=== PATIENT | female | born 1995 | race Caucasian/White ===

== ENCOUNTER 2017-06-17 20:32 | Emergency (ER) | payer BC ==
[~2017-06-17] VITALS: Ht 152.4 cm; Wt 48.9 kg
[~2017-06-17 20:32] MED LIST: ACET-1256 PO; CETI10TA84 PO; ONDA4TAB46 PO
[2017-06-17 20:35] VITALS: TEMP 36.6; Ht 152.4 cm; Wt 48.9 kg
[2017-06-17] MEDS ORDERED: SODIUM CHLORIDE 0.9% 1000ML 1,000 ML IV STA ×2 (21:22→23:32)
[2017-06-17] MEDS ORDERED: METOCLOPRAMIDE HCL INJ 5 MG/ML 2 ML VIAL IV STA (21:22)
--- NOTE | 2017-06-17 21:24 | EMERGENCY ROOM VISIT NOTE ---
History Report prepared by Manas: Warren Davila Under the Supervision of: Dr. Vinicio Murguia M.D. First contact with patient: 20:58 Chief Complaint: VOMITING Stated Complaint: NAUSEA,VOMITTING,DEHYDRATION History of Present Illness The patient is a 21 year old white female with a past medical history of anxiety induced vomiting who presents to the ED with a cc of vomiting beginning 24 hours ago. Positive nausea, diaphoresis, and stressors. Negative loss of consciousness, fevers, chills, trauma, falls, or sore throat. The patient just recently moved in for classes this semester and has a lot of current stress. This has induced her vomiting episodes. This tends to be normal for her, but the vomiting has persisted for over 24 hours, and she cannot keep any food or liquid in her system. She has tried Zofran with no relief. She takes Fluoxetine for her Anxiety. She received an endoscopy for her upper GI track that was negative. She also has her wisdom teeth removed. Her last menstrual period was the end of April, and it was normal. Source of History: patient Onset: 24 hours ago Position: other (GI) Symptom Intensity: 8 episodes Quality: other (Vomiting) Timing: intermittent Associated Symptoms: + diaphoresis, + nausea, No LOC, No fevers, No chills, No neck pain Note: She has current stressors. Review of Systems See HPI for pertinent positives and negatives. A total of ten systems were reviewed and were otherwise negative. Past Medical & Surgical No past medical history Family History Patient reports no known family medical history. Social History Smoking Status: Never Smoker Smokeless Tobacco Use: No Alcohol Use: none Drug Use: none Marital Status: single Housing Status: lives with roommate Occupation Status: [email or web address] student Current/Historical Medications Scheduled Acetaminophen (Tylenol), 500 MG PO PRN Cetirizine (Zyrtec), 10 MG PO DAILY Fluoxetine Hcl (Pmdd) (Fluoxetine), 1 CAP PO DAILY Scheduled PRN Metoclopramide (Reglan), 10 MG PO Q6H PRN for Nausea Ondansetron Hcl (Zofran), 4 MG PO Q8 PRN for Nausea Allergies Coded Allergies: No Known Allergies (Unverified , 06/17/17) Physical Exam Vital Signs Date Time Temp Pulse Resp B/P (MAP) Pulse Ox O2 Delivery O2 Flow Rate FiO2 06/18/17 00:44 96 20 98 06/18/17 00:23 102 20 112/69 98 Room Air 06/17/17 22:26 98 16 108/65 99 Room Air 06/17/17 21:44 81 06/17/17 20:35 36.6 98 16 112/80 99 Room Air Physical Exam GENERAL: Awake, alert, well-appearing, NAD HENT: Normocephalic, atraumatic. EYES: Normal conjunctiva. Sclera non-icteric. NECK: Supple. No nuchal rigidity. FROM. RESPIRATORY: CTAB, no rhonchi, wheezing, crackles CARDIAC: RRR, no MRG ABDOMEN: Soft, NTND, BS+ MSK: No chest wall TTP, no LE edema NEURO: GCS 15, CN 2-12 intact, moves all 4s on command SKIN: No rash or jaundice noted. Medical Decision & Procedures Laboratory Results 06/17/17 21:35 Red Blood Count 4.63, Mean Corpuscular Volume 85.7, Mean Corpuscular Hemoglobin 28.9, Mean Corpuscular Hemoglobin Concent 33.8, Mean Platelet Volume 9.0, Neutrophils (%) (Auto) 72.9, Lymphocytes (%) (Auto) 18.4, Monocytes (%) (Auto) 8.0, Eosinophils (%) (Auto) 0.3, Basophils (%) (Auto) 0.1, Neutrophils # (Auto) 6.82, Lymphocytes # (Auto) 1.72, Monocytes # (Auto) 0.75, Eosinophils # (Auto) 0.03, Basophils # (Auto) 0.01 06/17/17 21:35 Test 06/17/17 21:35 06/17/17 22:20 White Blood Count 9.36 K/uL (4.8-10.8) Red Blood Count 4.63 M/uL (4.2-5.4) Hemoglobin 13.4 g/dL (12.0-16.0) Hematocrit 39.7 % (37-47) Mean Corpuscular Volume 85.7 fL (80-100) Mean Corpuscular Hemoglobin 28.9 pg (25-34) Mean Corpuscular Hemoglobin Concent 33.8 g/dl (32-36) Platelet Count 336 K/uL (130-400) Mean Platelet Volume 9.0 fL (7.4-10.4) Neutrophils (%) (Auto) 72.9 % Lymphocytes (%) (Auto) 18.4 % Monocytes (%) (Auto) 8.0 % Eosinophils (%) (Auto) 0.3 % Basophils (%) (Auto) 0.1 % Neutrophils # (Auto) 6.82 K/uL (1.4-6.5) Lymphocytes # (Auto) 1.72 K/uL (1.2-3.4) Monocytes # (Auto) 0.75 K/uL (0.11-0.59) Eosinophils # (Auto) 0.03 K/uL (0-0.5) Basophils # (Auto) 0.01 K/uL (0-0.2) RDW Standard Deviation 39.8 fL (36.4-46.3) RDW Coefficient of Variation 12.8 % (11.5-14.5) Immature Granulocyte % (Auto) 0.3 % Immature Granulocyte # (Auto) 0.03 K/uL (0.00-0.02) Anion Gap 11.0 mmol/L (3-11) Est Creatinine Clear Calc Drug Dose 82.3 ml/min Estimated GFR () 125.8 Estimated GFR (Non- 108.5 BUN/Creatinine Ratio 13.0 (10-20) Calcium Level 9.3 mg/dl (8.5-10.1) Total Bilirubin 0.7 mg/dl (0.2-1) Direct Bilirubin 0.2 mg/dl (0-0.2) Aspartate Amino Transf (AST/SGOT) 14 U/L (15-37) Alanine Aminotransferase (ALT/SGPT) 17 U/L (12-78) Alkaline Phosphatase 54 U/L (45-117) Total Protein 7.7 gm/dl (6.4-8.2) Albumin 4.1 gm/dl (3.4-5.0) Lipase 70 U/L (73-393) Urine Color DK YELLOW Urine Appearance CLEAR (CLEAR) Urine pH 5.5 (4.5-7.5) Urine Specific [place] 1.035 (1.000-1.030) Urine Protein TRACE (NEG) Urine Glucose (UA) NEG (NEG) Urine Ketones 4+ (NEG) Urine Occult Blood TRACE (NEG) Urine Nitrite NEG (NEG) Urine Bilirubin NEG (NEG) Urine Urobilinogen NEG (NEG) Urine Leukocyte Esterase NEG (NEG) Urine WBC (Auto) 1-5 /hpf (0-5) Urine RBC (Auto) 0-4 /hpf (0-4) Urine Hyaline Casts (Auto) 0 /lpf (0-5) Urine Epithelial Cells (Auto) >30 /lpf (0-5) Urine Bacteria (Auto) 1+ (NEG) Urine Pathogenic Casts /lpf (0) Urine Mucus PRESENT (NONE PRSENT) Urine Test NEG (NEG) Laboratory results reviewed by me Medications Administered Medications (Trade) Dose Ordered Sig/Lee Route Start Time Stop Time Status Last Admin Dose Admin Metoclopramide HCl (Reglan Inj) 10 mg NOW STAT IV 06/17/17 21:22 06/17/17 21:25 DC 06/17/17 21:38 10 MG Sodium Chloride 1,000 ml @ 999 mls/hr Q1H1M STAT IV 06/17/17 21:22 06/17/17 22:22 DC 06/17/17 21:38 999 MLS/HR Potassium Chloride (Klor-Con Tab) 40 meq ONE STAT PO 06/17/17 22:18 06/17/17 22:19 DC 06/17/17 22:48 40 MEQ Sodium Chloride 1,000 ml @ 999 mls/hr Q1H1M STAT IV 06/17/17 23:32 06/18/17 00:32 DC 06/17/17 23:39 999 MLS/HR ED Course 2057: The patient was evaluated in room C6. A complete history and physical exam was performed. 2310: The patient's PO challenge was successful. 2330: I reevaluated the patient. Discussed results and discharge instructions: She verbalized understanding and agreement. The patient is ready for discharge. Medical Decision The patient is a 21 year old white female with a past medical history of anxiety induced vomiting who presents to the ED with a cc of vomiting beginning 24 hours ago. Positive nausea, diaphoresis, and stressors. Negative loss of consciousness, fevers, trauma, falls, or sore throat. Triage Nursing notes reviewed. The patient's presentation and history were concerning for appendicitis, diverticulitis, PUD, biliary pathology, UTI, pancreatitis, obstruction, mesenteric ischemia, aortic pathology, infections, inflammatory bowel disease, renal colic, as well as others were entertained. Patient was seen and evaluated the bedside. Patient did state that every time she does get stressed out she does experience vomiting. Patient has not been able tolerate by mouth. Patient denies any pain. The patient had blood work. Patient was given IV fluids as well as Reglan. Patient's tachycardia improved. Patient did have mild hypokalemia which was repleted. Patient's UA was negative but did have ketones likely consistent with starvation ketosis. Patient was able to tolerate by mouth and was able to drink water. Patient's UPT was negative. Patient was counseled on augmenting her diet. Patient was also told to avoid caffeinated or alcoholic beverages. Patient was given strict follow-up, discharge, and return precautions. She agreed with plan of care and patient was safely discharged home. Medication Reconcilliation Current Medication List: was personally reviewed by me Blood Pressure Screening Patient's blood pressure: Normal blood pressure Blood pressure disposition: Did not require urgent referral Impression Primary Impression: Dehydration Additional Impressions: Nausea & vomiting Hypokalemia Scribe Attestation The scribe's documentation has been prepared under my direction and personally reviewed by me in its entirety. I confirm that the note above accurately reflects all work, treatment, procedures, and medical decision making performed by me. Departure Information Dispostion Home / Self-Care Prescriptions Metoclopramide (Reglan) 10 Mg Tab 10 MG PO Q6H Y for Nausea, #6 TAB Prov: Vinicio Murguia M.D. 06/17/17 Referrals No Doctor, Assigned (PCP) Forms HOME CARE DOCUMENTATION FORM, IMPORTANT VISIT INFORMATION Patient Instructions Dehydration, ED Nausea Vomiting, [facility] Additional Instructions Please return to the emergency department if you have worsening or recurrent symptoms not amenable to at-home treatment. Please call for a follow-up appointment with her primary care physician. Please take your medications as prescribed. If you have other concerns and/or complaints please feel free to also call your primary care physician's office or return the ED for further evaluation, management, and treatment. If he do feel nauseated please only take one of her anti-emetics at one time. If this is not working may try the other medication. School Instructions Return To School: 1 day Problem Qualifiers Additional Impressions: Nausea & vomiting Vomiting type: unspecified Vomiting Intractability: non-intractable Qualified Codes: R11.2 - Nausea with vomiting, unspecified
[2017-06-17] MEDS ORDERED: FLUO20CA20 PO (21:27)
[2017-06-17 21:46] LABS: BASO % 0.1 %; BASO ABS # 0.01 K/uL (0-0.2); COMPLETE YES; EOS % 0.3 %; HEMATOCRIT 39.7 % (37-47); IG% 0.3 %; LYMPH % 18.4 %; LYMPH ABS # 1.72 K/uL (1.2-3.4); MEAN CELL VOLUME 85.7 fL (80-100); MEAN CORPUSCULAR HEMOGLOBIN 28.9 pg (25-34); MEAN CORPUSCULAR HGB CONC 33.8 g/dl (32-36); NEUT % 72.9 %; PLATELET COUNT 336 K/uL (130-400); RED BLOOD COUNT 4.63 M/uL (4.2-5.4); WHITE BLOOD COUNT 9.36 K/uL (4.8-10.8)
[2017-06-17 22:11] LABS: CALCIUM 9.3 mg/dl (8.5-10.1); CREATININE 0.79 mg/dl (0.60-1.20); POTASSIUM 3.3 mmol/L (3.5-5.1)
[2017-06-17] MEDS ORDERED: POTASSIUM CHLORIDE 20 MEQ TABCR PO STA (22:18)
[2017-06-17 22:49] LABS: URINE APPEARANCE CLEAR (CLEAR); URINE BILIRUBIN NEG (NEG); URINE COLOR DK YELLOW; URINE EPITHELIAL CELL AUTO >30 /lpf (0-5); URINE NITRITE NEG (NEG); URINE PH 5.5 (4.5-7.5); URINE SPECIFIC GRAVITY 1.035 (1.000-1.030); UROBILINOGEN NEG (NEG); ZZUR CULT IF INDIC CLEAN CATCH YES
[2017-06-17 22:52] LABS: MANUAL MICROSCOPIC REQUIRED? NO; REVIEW REQ? YES
[2017-06-17 23:02] LABS: URINE MUCUS PRESENT (NONE PRSENT)
[2017-06-17] MEDS ORDERED: METO-157 PO (23:23)
[2017-06-18 00:23] VITALS: BP 112/69
[2017-06-18 00:44] VITALS: PULSE 96; O2SAT 98
== END 2017-06-18 00:46 | disposition home or self-care (01) ==
LOC: C.EDB 20:33 → C.EDC 06-18 00:46
DX: E86.0 Dehydration (principal); R11.2 Nausea with vomiting, unspecified; E87.6 Hypokalemia

== ENCOUNTER 2017-06-18 07:18 | Emergency (ER) | payer BC ==
[~2017-06-18] VITALS: Ht 157.5 cm; Wt 50.6 kg
[~2017-06-18 07:18] MED LIST changes: +FLUO20CA20 PO; +METO-157 PO
[2017-06-18 07:27] VITALS: TEMP 36.8; Ht 157.5 cm; Wt 50.6 kg
[2017-06-18] MEDS ORDERED: DiphenhydrAMINE HCL 50 MG/ML VIAL IV STA (07:35)
[2017-06-18] MEDS ORDERED: PROMETHAZINE HCL INJ 6.25 MG in SODIUM CHLORIDE 0.9% 50ML 50 ML IV STA (07:35)
[2017-06-18] MEDS ORDERED: LORAZEPAM 2 MG/ML 1 ML VIAL IV STA (07:35)
[2017-06-18] MEDS ORDERED: SODIUM CHLORIDE 0.9% 1000ML 1,000 ML IV STA (07:35)
--- NOTE | 2017-06-18 07:42 | EMERGENCY ROOM VISIT NOTE ---
History Report prepared by Manas: Lesly Thompson Under the Supervision of: Dr. Cortes Phoenix M.D. First contact with patient: 07:32 Chief Complaint: NAUSEA Stated Complaint: NAUSEA,CAN'T STOP VOMITING,HANDS CRAMPING History of Present Illness The patient is a 21 year old female who presents to the Emergency Room with complaints of persistent nausea that began six hours ago. The patient reports that she has a history of nausea and vomiting with anxiety. She states that she was evaluated in the emergency department early this morning for her persistent nausea and vomiting and states that upon discharge she was feeling well. The patient states that once she returned home she became nauseous. She states that thirty minutes ago she began vomiting, reporting four episodes of emesis. The patient denies any diarrhea, noting that her last bowel movement was yesterday. Per records, the patient was evaluated 6 hours ago and her lab work and urinalysis was normal. testing was negative. Records indicate that the patient was given fluids and Reglan and was discharged with a prescription for Reglan. The patient states that she has not been able to get her Reglan filled and states that she had left over Zofran at home. She denies any relief with the Zofran. The patient states that this has happened in the past. Source of History: patient Onset: six hours ago Position: other (global) Quality: other (nausea) Timing: other (persistent) Associated Symptoms: + vomiting, No diarrhea Review of Systems See HPI for pertinent positives & negatives. A total of 10 systems reviewed and were otherwise negative. Past Medical & Surgical Medical Problems: (1) Pneumonia Surgical Problems: (1) [place] teeth extracted Family History Patient reports no known family medical history. Social History Smoking Status: Never Smoker Alcohol Use: none Drug Use: none Marital Status: single Housing Status: lives with roommate Occupation Status: [employer] student Current/Historical Medications Scheduled Acetaminophen (Tylenol), 500 MG PO PRN Cetirizine (Zyrtec), 10 MG PO DAILY Fluoxetine Hcl (Pmdd) (Fluoxetine), 1 CAP PO DAILY Scheduled PRN Metoclopramide (Reglan), 10 MG PO Q6H PRN for Nausea Ondansetron Hcl (Zofran), 4 MG PO Q8 PRN for Nausea Allergies Coded Allergies: No Known Allergies (Unverified , 8/23/17) Physical Exam Vital Signs Date Time Temp Pulse Resp B/P (MAP) Pulse Ox O2 Delivery O2 Flow Rate FiO2 06/18/17 12:34 86 15 111/75 97 06/18/17 11:15 82 17 120/85 98 Room Air 06/18/17 09:11 88 14 120/86 100 Room Air 06/18/17 08:10 77 20 113/80 99 Room Air 06/18/17 07:27 36.8 112 18 108/79 98 Room Air Physical Exam GENERAL: Patient is anxious, pacing. HEENT: No acute trauma, normocephalic atraumatic, mucous membranes moist, no nasal congestion, no scleral icterus. NECK: No stridor, no adenopathy, no meningismus, trachea is midline. LUNGS: Clear to auscultation bilaterally, no wheeze, no rhonchi, breath sounds equal. HEART: Mildly tachycardic with a regular rhythm, no murmurs. ABDOMEN: Soft, nontender, bowel sounds positive, no hernias, no peritonitis. EXTREMITIES: No cyanosis or edema, full range of motion of all the joints without pain or difficulty, no signs for acute trauma. NEUROLOGIC: Oriented x 3, no acute motor or sensory deficits, no focal weakness. SKIN: No rash, no jaundice, no diaphoresis. Medical Decision & Procedures ER Provider Diagnostic Interpretation: X-ray results as stated below per interpretation by me and the radiologist: ABDOMEN 2VIEW W/PA CHEST RTN HISTORY: 21 years-old Female vomiting COMPARISON: None available TECHNIQUE: Frontal view of the chest with erect and supine views of the abdomen. FINDINGS: Cardiomediastinal and hilar silhouettes are within normal limits. No pneumothorax, pleural effusion or focal airspace consolidation. Bones of the thorax are grossly intact. No pneumoperitoneum on the upright projection. Bowel gas pattern is nonobstructive. No organomegaly or urolith identified. No fracture. There is moderate volume of formed stool involving the transverse colon. There is a 4 mm calcification of the left hemipelvis suggesting phlebolith. IMPRESSION: 1. Nonobstructive bowel gas pattern without pneumoperitoneum. 2. No acute cardiopulmonary process. The above report was generated using voice recognition software. It may contain grammatical, syntax or spelling errors. Electronically signed by: Joe Garcia M.D. 06/18/2017 8:46 AM Dictated Date/Time: 06/18/2017 8:44 AM Medications Administered Medications (Trade) Dose Ordered Sig/Lee Route Start Time Stop Time Status Last Admin Dose Admin Lorazepam (Ativan Inj) 0.5 mg NOW STAT IV 06/18/17 07:35 06/18/17 07:37 DC 06/18/17 08:01 0.5 MG Promethazine HCl 6.25 mg/Sodium Chloride 50.25 ml @ 204 mls/hr NOW STAT IV 06/18/17 07:35 06/18/17 07:49 DC 06/18/17 08:01 204 MLS/HR Sodium Chloride 1,000 ml @ 999 mls/hr Q1H1M STAT IV 06/18/17 07:35 06/18/17 08:35 DC 06/18/17 08:01 999 MLS/HR Diphenhydramine HCl (Benadryl Inj) 12.5 mg NOW STAT IV 06/18/17 07:35 06/18/17 07:37 DC 06/18/17 08:03 12.5 MG Lactated Ringer's 1,000 ml @ 999 mls/hr Q1H1M STAT IV 06/18/17 09:00 06/18/17 10:00 DC 06/18/17 09:07 999 MLS/HR ED Course 0733: The patient was evaluated in room B2. A complete history and physical exam was performed. 0735: Ordered Benadryl Inj 12.5 mg IV, Sodium Chloride 1000 ml @ 999 mls/hr IV, Promethazine HCl 6.25 mg/Sodium Chloride 50.25 ml @ 204 mls/hr IV, Ativan Inj 0.5 mg IV. 0857: I reevaluated the patient and she is resting comfortably. She is requesting more fluids. 0900: Ordered Lactated Ringer's 1000 ml @ 999 mls/hr IV. 1126: I reevaluated the patient and she is eating crackers and hoping to go home. 1201: I reevaluated the patient and she is resting comfortably. I discussed the exam findings with her and I discussed the treatment plan. She verbalized complete understanding and agreement. She is ready to go home. Medical Decision The patient is a 21 year old female who presents to the ED with complaints of nausea. Differential diagnoses considered include Anxiety induced vomiting, dehydration, electrolyte imbalance, bowel obstruction, UTI. The patient presents with persistent vomiting despite being discharged from our ER just 6 hours ago. She has not had time to fill her Reglan prescription. She tried Zofran which she had at home and this has not helped. I reviewed the patient's laboratory testing from earlier, there was no leukocytosis or anemia, no significant electrolyte abnormality or kidney failure. There was no hepatitis or pancreatitis. Urinalysis did not show infection. testing was negative. With this second visit, an obstruction series was done, there was no bowel obstruction, no pneumonia or free air. The patient received IV saline, IV lactated Ringer's. She was given IV Phenergan, IV Ativan and IV Benadryl. She is improved. She is now tolerating oral intake and she would like to be discharged home. I did speak with her mother who arrived at the bedside. The patient was offered a stay in the hospital but she feels markedly better and is being discharged home, she will fill her Reglan prescription. She presents with vomiting and dehydration as a result of extreme anxiety. She has a history of the same. Impression Primary Impression: Vomiting Additional Impressions: Dehydration Anxiety Scribe Attestation The scribe's documentation has been prepared under my direction and personally reviewed by me in its entirety. I confirm that the note above accurately reflects all work, treatment, procedures, and medical decision making performed by me. Departure Information Dispostion Home / Self-Care Referrals No Doctor, Assigned (PCP) Forms HOME CARE DOCUMENTATION FORM, IMPORTANT VISIT INFORMATION Patient Instructions [facility] Additional Instructions use the reglan as previously prescribed return if worsening xray was normal today Problem Qualifiers
--- NOTE | 2017-06-18 08:47 | DIAGNOSTIC IMAGING REPORT ---
ABDOMEN 2VIEW W/PA CHEST RTN HISTORY: 21 years-old Female vomiting COMPARISON: None available TECHNIQUE: Frontal view of the chest with erect and supine views of the abdomen. FINDINGS: Cardiomediastinal and hilar silhouettes are within normal limits. No pneumothorax, pleural effusion or focal airspace consolidation. Bones of the thorax are grossly intact. No pneumoperitoneum on the upright projection. Bowel gas pattern is nonobstructive. No organomegaly or urolith identified. No fracture. There is moderate volume of formed stool involving the transverse colon. There is a 4 mm calcification of the left hemipelvis suggesting phlebolith. IMPRESSION: 1. Nonobstructive bowel gas pattern without pneumoperitoneum. 2. No acute cardiopulmonary process. The above report was generated using voice recognition software. It may contain grammatical, syntax or spelling errors. Electronically signed by: Joe Garcia M.D. 06/18/2017 8:46 AM Dictated Date/Time: 06/18/2017 8:44 AM
[2017-06-18] MEDS ORDERED: LACTATED RINGER'S 1000ML 1,000 ML IV STA (09:00)
[2017-06-18 12:34] VITALS: BP 111/75; PULSE 86; O2SAT 97
== END 2017-06-18 12:30 | disposition home or self-care (01) ==
LOC: C.EDB 07:20
DX: R11.2 Nausea with vomiting, unspecified (principal); E86.0 Dehydration; F41.9 Anxiety disorder, unspecified; Z87.01 Personal history of pneumonia (recurrent); Z79.899 Other long term (current) drug therapy